=== PATIENT | female | born 1950 | race Caucasian/White ===

== ENCOUNTER 2021-05-20 23:36 | Inpatient (IN) | payer MEDICARE, OTHER ==
[~2021-05-20] VITALS: Ht 165.1 cm; Wt 91.6 kg
[~2021-05-20 23:36] MED LIST: ASPIRIN EC81 MG PO; ATORVASTATIN CA40 MG PO; CLOPIDOGREL75 MG PO; ESCITALOPRAM OX20 MG PO; LEVOTHYROXINE100 MCG PO; LOPRESSOR 25 MG25 MG PO; NIFEDIPINE ER30 MG PO; OMNICEF 300 MG300 MG PO; PROTONIX 40 MG40 M1 PO; WARFARIN SODIUM5 MG PO
[2021-05-21 00:25] LABS: HEMOGLOBIN 10.5 gm/dl (12.3-15.3); RED BLOOD COUNT 3.18 M/UL (4.00-5.10); WHITE BLOOD COUNT 8.4 K/UL (4.5-11.0)
[2021-05-21] MEDS ORDERED: ACETAMINOPHEN500 MG PO (11:51)
[2021-05-21] MEDS ORDERED: HYDRALAZINE HCL25 MG PO (11:51)
[2021-05-21] MEDS ORDERED: WARFARIN SODIUM3 MG PO (11:53)
[2021-05-21] MEDS ORDERED: WARFARIN SODIU2.5 MG PO (11:54)
[2021-05-22 09:16] LABS: HEMOGLOBIN 10.3 gm/dl (12.3-15.3); RED BLOOD COUNT 3.16 M/UL (4.00-5.10); WHITE BLOOD COUNT 7.3 K/UL (4.5-11.0)
[2021-05-23 02:57] LABS: HEMOGLOBIN 10.3 gm/dl (12.3-15.3); RED BLOOD COUNT 3.18 M/UL (4.00-5.10); WHITE BLOOD COUNT 7.7 K/UL (4.5-11.0)
[2021-05-24 03:32] LABS: HEMOGLOBIN 9.9 gm/dl (12.3-15.3); RED BLOOD COUNT 3.05 M/UL (4.00-5.10); WHITE BLOOD COUNT 8.3 K/UL (4.5-11.0)
[2021-05-24] MEDS ORDERED: AMIODARONE HCL200 MG PO (09:10)
[2021-05-24] MEDS ORDERED: CARDIZEM 60MG T60 MG PO (09:10)
== END 2021-05-24 16:32 | disposition home or self-care (01) | DRG 280 ==
LOC: ER1 23:36 → PROG CARE 05-21 01:21 → CDU 05-21 01:21 → PROG CARE 05-21 12:33
PROVIDERS: Emergency Medicine; Internal Medicine; ADMIT Internal Medicine
PROC: 5A1D70Z Performance of Urinary Filtration, Intermittent, Less than 6 Hours Per Day (ICD-10-PCS; 2021-05-20)
PROC: B24BZZ4 Ultrasonography of Heart with Aorta, Transesophageal (ICD-10-PCS; principal; 2021-05-21)
PROC: 5A1D70Z Performance of Urinary Filtration, Intermittent, Less than 6 Hours Per Day (ICD-10-PCS; 2021-05-22)
PROC: 5A1D70Z Performance of Urinary Filtration, Intermittent, Less than 6 Hours Per Day (ICD-10-PCS; 2021-05-24)
DX: I48.0 Paroxysmal atrial fibrillation (principal); I21.4 Non-ST elevation (NSTEMI) myocardial infarction; Z20.822 Contact with and (suspected) exposure to COVID-19; N18.6 End stage renal disease; R53.2 Functional quadriplegia; N17.0 Acute kidney failure with tubular necrosis; I12.0 Hypertensive chronic kidney disease with stage 5 chronic kidney disease or end stage renal disease; D68.51 Activated protein C resistance; I73.9 Peripheral vascular disease, unspecified; E03.9 Hypothyroidism, unspecified; F32.9 Major depressive disorder, single episode, unspecified; F41.9 Anxiety disorder, unspecified; D63.1 Anemia in chronic kidney disease; E78.5 Hyperlipidemia, unspecified; E66.9 Obesity, unspecified; I08.2 Rheumatic disorders of both aortic and tricuspid valves; F17.210 Nicotine dependence, cigarettes, uncomplicated; Z99.2 Dependence on renal dialysis; Z89.512 Acquired absence of left leg below knee; Z89.511 Acquired absence of right leg below knee; Z79.01 Long term (current) use of anticoagulants; Z68.30 Body mass index [BMI] 30.0-30.9, adult; Z98.51 Tubal ligation status; Z86.718 Personal history of other venous thrombosis and embolism; Z82.49 Family history of ischemic heart disease and other diseases of the circulatory system; Z81.1 Family history of alcohol abuse and dependence; Z80.1 Family history of malignant neoplasm of trachea, bronchus and lung; Z82.3 Family history of stroke; Z68.37 Body mass index [BMI] 37.0-37.9, adult
CPT/HCPCS: 36415; 71045; 80048; 80053; 82550; 82553; 83036; 83605; 83735; 83874; 83880; 84439; 84443; 84484; 85025; 85027; 85610; 86140; 90935; 90937; 93005; 93308; 94640; 94664; 94760; 99285; U0002

== ENCOUNTER 2021-06-10 07:05 | Observation (INO) | payer MEDICARE, OTHER ==
[~2021-06-10] VITALS: Ht 165.1 cm; Wt 96.2 kg
[~2021-06-10 07:05] MED LIST changes: +ACETAMINOPHEN500 MG PO; +AMIODARONE HCL200 MG PO; +CARDIZEM 60MG T60 MG PO; +HYDRALAZINE HCL25 MG PO; +WARFARIN SODIU2.5 MG PO; +WARFARIN SODIUM3 MG PO
[2021-06-10 08:00] LABS: HEMOGLOBIN 9.2 gm/dl (12.3-15.3); RED BLOOD COUNT 2.88 M/UL (4.00-5.10); WHITE BLOOD COUNT 8.2 K/UL (4.5-11.0)
[2021-06-10] MEDS ORDERED: CARDIZEM60 MG PO (11:46)
[2021-06-11 06:41] LABS: HEMOGLOBIN 9.5 gm/dl (12.3-15.3); RED BLOOD COUNT 2.94 M/UL (4.00-5.10); WHITE BLOOD COUNT 8.4 K/UL (4.5-11.0)
== END 2021-06-11 12:33 | disposition home or self-care (01) ==
LOC: ER1 07:05 → MED SURG 4 09:38 → CDU 09:38 → MED SURG 4 13:23
PROVIDERS: Emergency Medicine; Physician Assistant; ADMIT Internal Medicine
DX: R07.89 Other chest pain (principal); R77.8 Other specified abnormalities of plasma proteins; I25.10 Atherosclerotic heart disease of native coronary artery without angina pectoris; I12.0 Hypertensive chronic kidney disease with stage 5 chronic kidney disease or end stage renal disease; N18.6 End stage renal disease; D63.1 Anemia in chronic kidney disease; I48.0 Paroxysmal atrial fibrillation; D68.51 Activated protein C resistance; I35.0 Nonrheumatic aortic (valve) stenosis; E03.9 Hypothyroidism, unspecified; E78.5 Hyperlipidemia, unspecified; E66.01 Morbid (severe) obesity due to excess calories; Z68.35 Body mass index [BMI] 35.0-35.9, adult; Z20.822 Contact with and (suspected) exposure to COVID-19; Z89.512 Acquired absence of left leg below knee; Z89.511 Acquired absence of right leg below knee; Z86.718 Personal history of other venous thrombosis and embolism; Z79.01 Long term (current) use of anticoagulants; Z79.899 Other long term (current) drug therapy; Z99.2 Dependence on renal dialysis; Z87.891 Personal history of nicotine dependence
CPT/HCPCS: 71045; 80048; 80053; 82550; 82553; 83874; 84484; 85025; 85610; 85730; 90935; 93005; 94760; 99285; G0378; U0002

== ENCOUNTER → 2022-02-18 | Outpatient (CLI) | payer MEDICARE, OTHER ==
[~2022-02-18] MED LIST changes: +AUGMENTIN 500-500 MG PO; +CARDIZEM60 MG PO
== END | disposition home or self-care (01) ==
LOC: WCC 07:10
DX: S31.104A Unspecified open wound of abdominal wall, left lower quadrant without penetration into peritoneal cavity, initial encounter (principal); X58.XXXA Exposure to other specified factors, initial encounter; J44.9 Chronic obstructive pulmonary disease, unspecified; I25.10 Atherosclerotic heart disease of native coronary artery without angina pectoris; I13.0 Hypertensive heart and chronic kidney disease with heart failure and stage 1 through stage 4 chronic kidney disease, or unspecified chronic kidney disease; N18.6 End stage renal disease; I50.9 Heart failure, unspecified; D68.2 Hereditary deficiency of other clotting factors; Z99.2 Dependence on renal dialysis; Z89.611 Acquired absence of right leg above knee; Z89.612 Acquired absence of left leg above knee; Z88.8 Allergy status to other drugs, medicaments and biological substances; Z87.891 Personal history of nicotine dependence; Z79.899 Other long term (current) drug therapy
CPT/HCPCS: 87070; 87086; 87205

== ENCOUNTER → 2022-03-04 | Outpatient (CLI) | payer MEDICARE, OTHER | LOC: WCC 07:36 | DX: S31.109S Unspecified open wound of abdominal wall, unspecified quadrant without penetration into peritoneal cavity, sequela (principal); I13.2 Hypertensive heart and chronic kidney disease with heart failure and with stage 5 chronic kidney disease, or end stage renal disease; I50.9 Heart failure, unspecified; N18.6 End stage renal disease; J44.9 Chronic obstructive pulmonary disease, unspecified; I25.10 Atherosclerotic heart disease of native coronary artery without angina pectoris; D68.2 Hereditary deficiency of other clotting factors; E66.9 Obesity, unspecified; Z99.2 Dependence on renal dialysis; Z89.611 Acquired absence of right leg above knee; Z89.612 Acquired absence of left leg above knee | CPT/HCPCS: G0463 ==

== ENCOUNTER 2022-04-25 00:12 | Inpatient (IN) | payer MEDICARE, OTHER ==
[~2022-04-25] VITALS: Ht 165.1 cm; Wt 99.8 kg
[~2022-04-25 00:12] MED LIST changes: -CARDIZEM60 MG PO; +DILTIAZEM 12HR60 MG PO
[2022-04-25 01:05] LABS: HEMOGLOBIN 11.6 gm/dl (12.3-15.3); RED BLOOD COUNT 3.71 M/UL (4.00-5.10)
[2022-04-25 07:04] LABS: HEMOGLOBIN 11.4 gm/dl (12.3-15.3); RED BLOOD COUNT 3.65 M/UL (4.00-5.10); WHITE BLOOD COUNT 7.8 K/UL (4.5-11.0)
[2022-04-25] MEDS ORDERED: PROVENTIL HFA6.7 GM INH (11:14)
[2022-04-25] MEDS ORDERED: WARFARIN SODIU2.5 MG PO (11:17)
[2022-04-26 09:10] LABS: HBSAG SCREEN Negative (Negative); HCV AB <0.1 (0.0-0.9); HEP A AB, IGM Negative (Negative); HEP B CORE AB, IGM Negative (Negative)
--- NOTE | 2022-04-28 17:51 | NUR ---
Patient recieved into room 4119 from PCU at this time. No s/s acute distress noted, patient denies pain/soa. Nurse notes wheezes and crackles bilaterally in upper lobes of lungs. Patient pulses palpable in all extremities. No neurovascular deficits noted. Call penny within reach, patient denies needs,
[2022-04-29 06:33] LABS: HEMOGLOBIN 11.4 gm/dl (12.3-15.3); RED BLOOD COUNT 3.68 M/UL (4.00-5.10); WHITE BLOOD COUNT 8.4 K/UL (4.5-11.0)
--- NOTE | 2022-04-30 19:17 | NUR ---
1203- Educated patient on proning, turning side to side. Education packet provided. Patient stated she would turn on her side but would think about proning and let staff know.
--- NOTE | 2022-05-04 07:30 | NUR ---
PATIENTS O2 SAT NOTED TO BE 85% ON ROOM AIR
[2022-05-04] MEDS ORDERED: JANTOVEN1 MG PO (08:53)
[2022-05-04] MEDS ORDERED: BUDESONIDE0.5 MG/2 M NEB (08:53)
[2022-05-04] MEDS ORDERED: IPRAT-ALBUT 0.5-3 ML NEB (08:53)
[2022-05-04] MEDS ORDERED: DECADRON6 MG PO (08:58)
== END 2022-05-04 16:55 | disposition home or self-care (01) | DRG 177 ==
LOC: ER1 00:12 → CDU 03:04 → MED SURG 4 03:04
PROVIDERS: Family Medicine; Internal Medicine; Internal Medicine Nephrology; ADMIT Internal Medicine
PROC: 8E0ZXY6 Isolation (ICD-10-PCS; principal; 2022-04-25)
PROC: 3E0333Z Introduction of Anti-inflammatory into Peripheral Vein, Percutaneous Approach (ICD-10-PCS; 2022-04-25)
PROC: 5A1D70Z Performance of Urinary Filtration, Intermittent, Less than 6 Hours Per Day (ICD-10-PCS; 2022-04-25)
DX: U07.1 COVID-19 (principal); J96.01 Acute respiratory failure with hypoxia; N18.6 End stage renal disease; J90 Pleural effusion, not elsewhere classified; I48.21 Permanent atrial fibrillation; D68.2 Hereditary deficiency of other clotting factors; I13.2 Hypertensive heart and chronic kidney disease with heart failure and with stage 5 chronic kidney disease, or end stage renal disease; I50.22 Chronic systolic (congestive) heart failure; J44.1 Chronic obstructive pulmonary disease with (acute) exacerbation; E87.70 Fluid overload, unspecified; J42 Unspecified chronic bronchitis; E11.51 Type 2 diabetes mellitus with diabetic peripheral angiopathy without gangrene; I73.9 Peripheral vascular disease, unspecified; E78.5 Hyperlipidemia, unspecified; F41.9 Anxiety disorder, unspecified; D63.1 Anemia in chronic kidney disease; I35.0 Nonrheumatic aortic (valve) stenosis; Z79.899 Other long term (current) drug therapy; E66.9 Obesity, unspecified; Z86.718 Personal history of other venous thrombosis and embolism; Z89.612 Acquired absence of left leg above knee; Z89.611 Acquired absence of right leg above knee; Z79.01 Long term (current) use of anticoagulants; Z82.49 Family history of ischemic heart disease and other diseases of the circulatory system; Z99.2 Dependence on renal dialysis; Z95.810 Presence of automatic (implantable) cardiac defibrillator; Z95.4 Presence of other heart-valve replacement; Z90.89 Acquired absence of other organs; Z98.51 Tubal ligation status; Z93.3 Colostomy status; Z68.37 Body mass index [BMI] 37.0-37.9, adult; Z99.3 Dependence on wheelchair
CPT/HCPCS: 36415; 36600; 71045; 80048; 80053; 80074; 82550; 82553; 82803; 83605; 83735; 83880; 84484; 85025; 85027; 85610; 94640; 94664; 94760; 96374; 99285; J1100; U0002